=== PATIENT | female | born 1985 | race Caucasian/White ===

== ENCOUNTER 2022-04-27 07:50 | Emergency (ER) | payer BC, OTHER ==
[2022-04-27] MEDS ORDERED: Mag-Al Plus 1200 MG/1200 MG/120 MG/30 ML UDCUP ONE (09:01)
[2022-04-27] MEDS ORDERED: Lidocaine Viscous Sol 2% 15 ml UD Cup ONE (09:02)
== END 2022-04-27 09:15 | disposition home or self-care (01) ==
LOC: CSHERS 07:50
DX: K21.9 Gastro-esophageal reflux disease without esophagitis (principal)
CPT/HCPCS: 99283